=== PATIENT | female | born 1955 | race Caucasian/White ===

== ENCOUNTER 2022-04-27 07:30 | Inpatient (IN) | payer MEDICARE, MEDICAID, SELFPAY ==
[2022-04-27] VITALS (11 sets, daily range): BP systolic 93–115; BP diastolic 49–67; PULSE 70–90; RESP 16–24; TEMP 36.5–36.9; O2SAT 93–99; BMI 23.7
--- NOTE | 2022-04-27 | ECHO_ITS ---
Patient Info Name: Olivia Alegria Age: 66 years : 1955 Gender: Female Ht: 65 in Wt: 140 lbs BSA: 1.71 m2 HR: 83 bpm BP: 93 / 49 mmHg Heart Rhythm: Sinus Rhythm Technical Quality: Fair Exam Date: 04/27/2022 10:21 AM Exam Location: [facility] Card Pulmonary Patient Status: Inpatient Admit Date: 04/27/2022 Staff Ordering Physician: Emma Ma Manager Medicaid: Miya Jaeger RDCS Attending Provider: Emma Ma Referring Physician: Francesca HALL; Exam Type: CA echo doppler color flow Study Info Indications - chest pain, dyspnea Complete two-dimensional, color flow and Doppler transthoracic echocardiogram is performed. Summary 1. Complete two-dimensional, color flow and Doppler transthoracic echocardiogram is performed. 2. Normal left ventricular size and thickness with good contractility of all segments. Ejection fraction 63%. Grade 2 diastolic dysfunction is present. 3. Left atrial chamber dimension is mildly enlarged. 4. There is mild mitral valve regurgitation. 5. Mild pulmonary hypertension, estimated pulmonary arterial systolic pressure is 37 mmHg. 6. Probable sinus rhythm. Left Ventricle Left ventricular chamber dimension is normal. Left ventricular systolic function is normal, estimated at Empty. There is no increased left ventricular wall thickness. Left ventricular septal wall motion is normal. The left ventricular diastolic function is grade II diastolic dysfunction. Right Ventricle Right ventricular chamber dimension is normal. Right ventricular systolic function is normal. Left Atria Left atrial chamber dimension is mildly enlarged. Right Atria Right atrial chamber dimension is normal. Aortic Valve The aortic valve is trileaflet. There is no aortic valve sclerosis. There is no aortic valve stenosis. There is no aortic valve regurgitation. Pulmonic Valve The pulmonic valve is normal. There is no pulmonic valve stenosis. There is no pulmonic regurgitation. Mitral Valve The mitral valve has normal leaflets and thickened leaflets. There is no mitral valve stenosis. There is mild mitral valve regurgitation. Tricuspid Valve The tricuspid valve leaflets are normal. There is no significant tricuspid valve stenosis. There is trace tricuspid valve regurgitation. Mild pulmonary hypertension, estimated pulmonary arterial systolic pressure is 37 mmHg. Pericardium/Pleural The pericardium appears normal. There is no pericardial effusion. Inferior Vena Cava Normal inferior vena cava with >50% collapse upon inspiration consistent with Empty right atrial pressure, 10 mmHg. Aorta The aortic root size at the sinus of Valsalva is normal. The prox ascending aorta size is normal. Left Ventricular Outflow Tract Name Value Normal LVOT Doppler LVOT Peak Gradient 7 mmHg LVOT Mean Gradient 4 mmHg LVOT VTI 25 cm LVOT VTI/AV VTI Ratio 0.9 Pulmonic Valve Name Value Normal
--- NOTE | ~2022-04-27 | XR_ITS ---
EXAMINATION: XR chest 1V portable DATE: 04/27/2022 08:21 INDICATION: Chest pain. TECHNIQUE: A single frontal view of the chest was obtained. COMPARISON: None. FINDINGS: The patient is rotated to her right. Calcified right lung nodules are consistent with old g ranulomatous disease. There is no pneumonia, pleural effusion, or pneumothorax. The heart size is nor mal. There is a left subclavian port with tip in superior vena cava. IMPRESSION: 1. No acute cardiopulmonary disease. Reviewed, dictated and finalized at location A.
--- NOTE | ~2022-04-27 | CT_ITS ---
EXAMINATION: CT brain wo con DATE: 04/28/2022 11:13 INDICATION: Persistent headache. TECHNIQUE: Computed tomography (CT) of the head was performed without intravenous contrast. The mA wa s adjusted according to patient size. Iterative reconstruction technique was employed. The dose-lengt h product was 605.33 mGy-cm. COMPARISON: None FINDINGS: There is no intracranial hemorrhage, acute infarction, or abnormal intracranial mass lesion . The ventricles are normal in size. There is mucosal thickening in the paranasal sinuses. The orbits are normal. The mastoid air cells are normal. IMPRESSION: 1. Normal brain. Reviewed, dictated and finalized at location A. IMPRESSION: 1. Normal brain.
--- NOTE | ~2022-04-27 | US_ITS ---
US venous doppler [facility] DATE: 04/27/2022 10:50 INDICATION: Recent history of deep venous thrombosis. Elevated d-dimer. TECHNIQUE: Real-time and color flow imaging and Doppler analysis COMPARISON: None FINDINGS: The greater saphenous veins are patent. There is spontaneous and phasic flow and normal aug mentation and color flow signal and normal compression of the common femoral, femoral, popliteal, pos terior tibial and peroneal veins bilaterally. IMPRESSION: No evidence of deep venous thrombosis of the lower extremities Reviewed, dictated and finalized at Location A. Reviewed, dictated and finalized at location B.
--- NOTE | 2022-04-27 08:01 | ECG_ITS ---
Measurements Intervals [place] Rate: 77 P: 71 LA: 169 QRS: 36 QRSD: 79 T: 53 QT: 374 QTc: 425 Interpretive Statements SINUS RHYTHM NO PREVIOUS ECG AVAILABLE FOR COMPARISON Electronically Signed On 04-27-2022 16:30:39 CDT by Beverley Santana M.D.
--- NOTE | 2022-04-27 08:06 | PC.NURSE ---
This patient, Olivia Alegrai, was admitted to IMU Room 214-01. Patient/family oriented to hospital policies and general routines including ID bracelet, bed and alarms, visiting hours, pain management, procedures, bathroom and other care routines, personal items, smoking policy, room service/diet, and visiting hours. Information on how to activate the Rapid Response Team has been discussed. Patient/Family are encouraged to report perceived risks to care and to ask questions if they do not understand what they are told or what they should do.
--- NOTE | 2022-04-27 08:32 | PM.IMHP ---
H&P: HPI History of Present Illness Date/Time: 04/27/22 08:19 Chief Complaint: Chest pain and SOB Narrative: This 66-year-old female patient with significant past medical history of stage III colon cancer status post colon resection and ostomy placement, recent DVT diagnosed in July 2021 that was treated with Eliquis and has currently been off anticoagulation for 3 weeks, peptic ulcer disease, splenectomy who presents as a transfer patient from [facility] in [facility] on a heparin drip, with complaints of chest pain, dyspnea and elevated troponins and D-dimer after having chemotherapy yesterday. Patient endorses that this is the 3rd time that after her chemotherapy has completed that she has developed the symptoms of severe headache, chest pain, painful inspiration and shortness of breath. Yesterday she presented to the emergency room secondary to these complaints and workup there was significant for elevated troponin, elevated D-dimer subsequent negative CTA of the chest, elevated lactic acid at 3.5, and hypotension with patient's systolic blood pressure in the 70s and tachycardic with heart rate in the 120s, but remaining in sinus rhythm. Review of the records from outside facility indicate that they were very judicious and hydrating this patient and she only received a total of 750 mL of IV fluids and placed on maintenance rate of 70 mL/hour. Patient has no known history of heart failure but does see a compound specialist at [place] who has name starts with an M. In addition her oncologist is Dr. Varma in [place] and she cannot remember the name of her PCP in [place] at this time. She is a former smoker, does not drink alcohol and does not use any illicit drugs. At the time of my assessment patient endorses mild left-sided chest pain without radiation, intermittent nausea is present in currently has severe headache pain she endorses that it hurts when she breathes in, although chest x-ray performed here is negative and lung sounds are unremarkable. She denies any recent vomiting or diarrhea in no dizziness or lightheadedness reported with her headache. outbound call center representative Cardiology had accepted patient in consult and they will be by to see patient today. ECHO, Venous Dopplers, Repeat labs and possible repeat of imaging will be performed. She is currently NSR 77 bpm on telemetry. Review of Systems Review of Systems: All systems reviewed & are unremarkable except as noted in HPI and below PMFSH Past Medical History Medical History (Updated 04/27/22 @ 08:48 by CESAR Franklin) Colon cancer PUD (peptic ulcer disease) Surgical History Surgical History (Updated 04/27/22 @ 08:40 by CESAR Franklin) H/O splenectomy History of colon resection History of creation of ostomy Family History Family History (Updated 04/27/22 @ 08:07 by Kaylah Mims RN) Other Unknown family medical history Social History Social History (Updated 04/27/22 @ 08:40 by CESAR Franklin) Smoking status: Former smoker Tobacco type: cigarettes Alcohol intake: former Substance use: never Spiritual care concerns: No Meds Home Medications and Allergies Home Medications Medication Instructions Recorded Confirmed Type apixaban 5 mg tablet (Eliquis) 5 mg PO BID 04/27/22 04/27/22 History atorvastatin 40 mg tablet 40 mg PO DAILY 04/27/22 04/27/22 History hydrocodone 5 mg-acetaminophen 325 25 tablet PO PRN 04/27/22 04/27/22 History mg tablet meclizine 25 mg tablet 25 mg PO PRN 04/27/22 04/27/22 History ondansetron HCl 4 mg tablet 4 mg PO PRN 04/27/22 04/27/22 History ondansetron HCl 4 mg tablet mg 04/27/22 History prochlorperazine maleate 10 mg 10 mg PO PRN 04/27/22 04/27/22 History tablet Allergies Allergy/AdvReac Type Severity Reaction Status Date / Time No Known Allergies Allergy Verified 04/27/22 08:39 Exam Const: General: comfortable and no acute distre
[2022-04-27 08:35] LABS: Hematocrit 37.1 % (37.0-47.0); Hemoglobin 11.6 g/dL (12.0-15.0); Mean Corpuscular HGB Conc 31.3 g/dl (32-36); Mean Corpuscular Hemoglobin 29.7 pg (26-34); Mean Corpuscular Volume 95.1 fl (80-100); Mean Platelet Volume 11.4 fl (7.4-10.4); Platelet Count Result 199 k/mm3 (150-375); Red Cell Distribution Width 16.8 % (11.5-14.5)
[2022-04-27 08:44] LABS: INR 1.2; Prothrombin Time 14.6 Seconds (11.1-14.7)
[2022-04-27 08:46] LABS: Lactic Acid Reflex 1.5 mmol/L (0.7-2.0)
[2022-04-27 08:46] LABS: Partial Thromboplastin Time 64.8 SECONDS (22.3-36.8)
[2022-04-27 08:49] LABS: Alanine Aminotransferase 57 U/L (6-35); Albumin Level 3.8 g/dL (3.5-5.1); Alkaline Phosphatase 96 U/L (38-126); Anion Gap 9 mmol/L (8-16); Aspartate Amino Transferase 188 U/L (14-36); Bilirubin,Total 0.6 mg/dL (0.2-1.3); Blood Urea Nitrogen 21 mg/dL (7-17); CRP 6.6 mg/dL (<1.0); Carbon Dioxide 21 mmol/L (22-30); Chloride 104 mmol/L (98-107); Estimated CRCL calculation 49 ml/min; Estimated Glomerular Filt Rate > 60; Glucose 103 mg/dL (65-110); Magnesium 1.7 mg/dL (1.6-2.3); Potassium 4.8 mmol/L (3.4-5.0); Sodium 134 mmol/L (137-145)
[2022-04-27 08:56] LABS: Band Neutrophils Percent 21 % (0-6); Hypochromasia 1+ (NORMAL); Lymphocytes Absolute Manual 0.54 K/mm3 (1.1-4.5); Lymphocytes Percent Manual 3 % (18-44); Neutrophils Absolute Manual 16.38 K/mm3 (1.7-7.2); Neutrophils Percent Manual 70 % (46-73); Platelet Estimate Adequate (Adequate); Total Cells Counted 100
[2022-04-27 08:57] LABS: Monocytes Absolute Manual 1.08 K/mm3 (0.1-0.90); Monocytes Percent Manual 6 % (3-9)
[2022-04-27 09:00] LABS: Troponin I 0.253 ng/mL (0.000-0.034)
[2022-04-27 09:28] LABS: Procalcitonin 21.3 ng/mL
[2022-04-27] MEDS: SODIUM CHLORIDE 0.9% IV 1,000 ML 100 ML IV CONT ×2 (09:48→17:33)
[2022-04-27] MEDS: HEPARIN SOD/D5W 100 UNITS/ML 25,000 UNITS/250 ML BAG 6 UNITS IV CONT (09:49)
[2022-04-27] MEDS: HEPARIN SODIUM 5,000 UNITS/ML VIAL 2500 UNITS IV PUSH (09:50)
--- NOTE | 2022-04-27 10:50 | PM.CNCAR ---
Assessment and Plan Assessment and plan (1) Chest pain: Code(s): R07.9 - Chest pain, unspecified Status: Acute Assessment and Plan: Patient admitted with chest pain and elevated troponins. EKG shows no acute changes History of Takotsubo cardiomyopathy in December 2021; troponins are not as high as they were at that time. Minimal CAD by catheterization in December 2021, with 80% diagonal stenosis. Echo pending Add aspirin. Recheck LFTs tmr and if improved resume atorvastatin Likely discontinue heparin depending on echo results. (2) Elevated troponin: Code(s): R77.8 - Other specified abnormalities of plasma proteins Status: Acute Assessment and Plan: As above (3) Hypotension: Code(s): I95.9 - Hypotension, unspecified Status: Acute Assessment and Plan: Admitted after chemo with hypotension. Elevated lactic acid and white cell count with a left shift Being treated for possible sepsis (4) Dyspnea: Code(s): R06.00 - Dyspnea, unspecified Status: Acute Assessment and Plan: Chronic CERDA, worse yesterday. No PE by CT scan No pneumonia by CT scan Mildly elevated proBNP but no evidence of acute CHF. History of Present Illness History of Present Illness Consult date/time: 04/27/22 10:50 Reason For Visit: Elevated troponin/Hypotension/Lactic Acidosis Narrative: Olivia Alegria is a 66 y.o. female whom I was asked to see at the request of Emma Ma APN, for my advice and opinion regarding chest pain and elevated troponins after chemotherapy. She has stage III colon cancer dx'd 08/2021 and she had a colectomy and splenectomy; hospital course complicated by a DVT and MRSA. Followed by Dr. Varma in [place], [place]. Anticoagulation was discontinued a few weeks ago. The patient was admitted to [facility] in [place] a few hours after her chemo tx yesterday. She complained of a pounding headache, with chest pain, dyspnea and weakness. Apparently this is the 3rd time she was admitted after chemotherapy. Her chest pain was in the epigastric area and left chest, also the right scapular area, somewhat pleuritic, lasting 3 or 4 hours. She had hypotension with systolic blood pressure in the 70s-90's, sinus tachycardia with heart rate in the 120s. She had e high sensitivity troponin I of 671, then 525. Her lactic acid was 3.5 lipase was 580. ProBNP was 1900. Elevated D-dimer. At the [place] emergency room she had elevated troponins, and elevated D-dimer of [address] of the chest, a lactic acid level 3.5. Lower extremity venous ultrasound was negative. Chest x-ray showed borderline cardiomegaly with no CHF. Aortic atherosclerosis. EKG was read as: Sinus tachycardia rate 123 but no acute ischemic changes. Patient was given some IV fluids and has been started on antibiotics here because of bandemia, hypotension and lactic acidosis. Troponin I here is 0.25 and 0.20. Spoke to the patient's usual brazer crawler torch, Dr. Arnold Mcmahon ([phone], [facility], [facility] in [place], [place]). Patient was hospitalized in December with elevated troponins, high sensitivity troponin I up to 4300. Cardiac catheterization showed an 80% diagonal lesion but the patient was thought to have Tako Tsubo cardiomyopathy possibly related to her chemotherapy and no PCI was done. She was also hospitalized in February for noncardiac issues and had negative troponins. Review of Systems Constitutional: Constitutional: Reports body ache(s), Reports fatigue and Reports weakness Eyes: Eyes: Reports no additional eye complaints ENT: Denies epistaxis Cardiovascular: Cardiovascular: Reports chest pain, Denies pedal edema, Denies leg edema, Reports lightheadedness and Reports palpitations Respiratory: Respiratory: Reports dyspnea and Reports dyspnea on exertion Comments: Patient has some chronic shortness of breath and CERDA, no history of COPD. Gastrointesti
[2022-04-27] MEDS: ACETAMINOPHEN 500 MG TABLET 1000 MG PO ×2 (11:01→21:45)
[2022-04-27 11:33] LABS: Appearance Urine Clear (Clear); Bilirubin Urine Negative (Negative); Blood Urine 2+ (Negative); Color Urine Yellow (Yellow); Glucose Urine UA Negative (Negative); Ketones Urine Negative (Negative); Leukocyte Esterase Ur Trace LEU/UL (Negative); Nitrate Urine Negative (Negative); Protein Urine Negative (Negative); Urobilinogen Urine 0.2 mg/dL (<2.0)
[2022-04-27 11:38] LABS: Troponin I 0.204 ng/mL (0.000-0.034)
[2022-04-27 11:42] LABS: Add Urine Microscopic? YES; Mucus Urine Rare /lpf; RBC Urine 0-2 /hpf (0-2); Squamous Epithelial Cell Urine Rare /hpf (Few)
[2022-04-27] MEDS: ASPIRIN 81 MG CHEWABLE TABLET PO (14:20)
[2022-04-27 17:00] LABS: Partial Thromboplastin Time 108.2 SECONDS (22.3-36.8)
[2022-04-27 17:04] LABS: Troponin I 0.184 ng/mL (0.000-0.034)
[2022-04-27] MEDS: ONDANSETRON INJ 4 MG/2 ML VIAL IV PUSH (21:56)
[2022-04-27 23:59] LABS: Partial Thromboplastin Time 94.1 SECONDS (22.3-36.8)
[2022-04-28] VITALS (9 sets, daily range): BP systolic 112–122; BP diastolic 57–62; PULSE 77–95; RESP 16–24; TEMP 36.4–37; O2SAT 92–95
[2022-04-28] MEDS: ACETAMINOPHEN 500 MG TABLET 1000 MG PO (03:53)
[2022-04-28] MEDS: SODIUM CHLORIDE 0.9% IV 1,000 ML 100 ML IV CONT (03:55)
[2022-04-28 05:34] LABS: Hemoglobin 10.9 g/dL (12.0-15.0); Mean Corpuscular HGB Conc 31.1 g/dl (32-36); Mean Corpuscular Hemoglobin 29.5 pg (26-34); Mean Corpuscular Volume 94.9 fl (80-100); Mean Platelet Volume 11.7 fl (7.4-10.4); Platelet Count Result 156 k/mm3 (150-375); Red Blood Count 3.69 M/mm3 (4.2-5.4); Red Cell Distribution Width 17.2 % (11.5-14.5); White Blood Count 14.7 K/mm3 (4.5-10.0)
[2022-04-28 05:45] LABS: Alanine Aminotransferase 33 U/L (6-35); Alkaline Phosphatase 90 U/L (38-126); Anion Gap 6 mmol/L (8-16); Aspartate Amino Transferase 79 U/L (14-36); Bilirubin,Total 0.4 mg/dL (0.2-1.3); Blood Urea Nitrogen 13 mg/dL (7-17); Calcium 8.6 mg/dL (8.4-10.2); Carbon Dioxide 21 mmol/L (22-30); Chloride 109 mmol/L (98-107); Estimated CRCL calculation 61 ml/min; Estimated Glomerular Filt Rate > 60; Glucose 92 mg/dL (65-110); Magnesium 1.7 mg/dL (1.6-2.3); Potassium 4.3 mmol/L (3.4-5.0); Sodium 136 mmol/L (137-145)
[2022-04-28 05:46] LABS: Partial Thromboplastin Time 88.7 SECONDS (22.3-36.8)
[2022-04-28] MEDS: HEPARIN SOD/D5W 100 UNITS/ML 25,000 UNITS/250 ML BAG 6 UNITS IV CONT (05:58)
[2022-04-28 06:45] LABS: Anisocytosis 1+ (NORMAL); Band Neutrophils Percent 1 % (0-6); Eosinophils Absolute Manual 0.14 K/mm3 (0.02-0.5); Eosinophils Percent Manual 1 % (0-4); Lymphocytes Absolute Manual 0.88 K/mm3 (1.1-4.5); Monocytes Absolute Manual 0.29 K/mm3 (0.1-0.90); Monocytes Percent Manual 2 % (3-9); Neutrophils Absolute Manual 13.37 K/mm3 (1.7-7.2); Neutrophils Percent Manual 90 % (46-73); Ovalocytes 1+ (NORMAL); Platelet Estimate Adequate (Adequate); Total Cells Counted 100
[2022-04-28] MEDS: ASPIRIN 81 MG CHEWABLE TABLET PO (07:38)
[2022-04-28] MEDS: ONDANSETRON INJ 4 MG/2 ML VIAL IV PUSH (08:27)
--- NOTE | 2022-04-28 10:34 | PM.IMPN ---
Progress Note: A&P Assessment and Plan (1) Chest pain: Code(s): R07.9 - Chest pain, unspecified Status: Acute Assessment and Plan: -in setting chemotherapy infusion. Patient endorses that she had the same reaction after the past 2 sessions of chemotherapy as well. -CTA PE protocol negative from outside facility. Monitor PTT, serial troponins, Serum electrolytes, and cbc Keep serum potassium >4 and keep magnesium >2 Cardiology consulted, appreciate assistance and recommendations Heparin drip per ACS protocol was discontinued as the patient has a relatively stable troponin, denies any chest pain, EKG negative, and echocardiogram was reviewed Monitor for bloody bowel movements,chest pain,SOB or dizziness/lightheadedness resume atorvastatin 40 mg daily, added aspirin 81 mg daily (2) Dyspnea: Code(s): R06.00 - Dyspnea, unspecified Status: Acute Assessment and Plan: -in setting of elevated D-dimer with recent history DVT and discontinuation of anticoagulation 3 weeks ago. negative CTA from outlying facility -monitor labs and vitals -chest x-ray performed here on arrival negative for any acute findings. patient reports a similar reaction after having her last chemo therapy treatment. Patient also states that the increased respirations may be due to her headache that has been persistent upon arrival. (3) Elevated troponin: Code(s): R77.8 - Other specified abnormalities of plasma proteins Status: Acute Assessment and Plan: Patient's troponin appears relatively from outpatient records. in December of 2021 the patient had a high sensitivity troponin I of 671 and 525. Shes had higher readings up to 4300. (4) Elevated d-dimer: Code(s): R79.89 - Other specified abnormal findings of blood chemistry Status: Acute Assessment and Plan: -CTA at outside facility was negative for any PE. -chest x-ray performed here was negative for any acute disease. -venous Dopplers ordered. -patient recently had lower extremity DVT and was on Eliquis 5 mg p.o. b.i.d., however that was discontinued 3 weeks ago. -echo was ordered (5) Hypotension: Code(s): I95.9 - Hypotension, unspecified Status: Acute Assessment and Plan: -monitor labs and vitals -IV fluid bolus as needed -IV maintenance fluids of normal saline at 100 an hour. (6) Elevated lactic acid level: Code(s): R79.89 - Other specified abnormal findings of blood chemistry Status: Acute Assessment and Plan: -repeat lactic acid. Suspect dehydration versus infection, however more suspicious of dehydration given no source of infection is appreciated and patient did appear minimally dehydrated on labs from outside facility with elevated renal function about her baseline. -continue hydration -monitor labs and vitals. -- Continue to review and look at other considerations. Subjective Date/time seen: 04/28/22 10:34 patient is alert and oriented. Discussed why she came to the hospital this morning. Patient reported that she came to the hospital because of the headache is still yet to be treated. CT of the head has not been performed. Will order this. Patient recently discontinued her Eliquis after having a DVT to her lower extremity. Her troponins appear to be stable. Echocardiogram was reviewed, will discontinue heparin drip. Cardiology Following. Patient denies any chest pain, abdominal pain, nausea, vomiting or diarrhea. She does endorse mild shortness of breath and relates this to a headache to the right eye -suggestive of a cluster migraine vs other concerning dx. May consider MRI of the brain w/wo contrast. Review of Systems Review of Systems: All systems reviewed & are unremarkable except as noted in HPI and below Exam Narrative: General: No acute distress. anxious Mental Status: Awake, alert and oriented to person, place, and time with clear speech. Skin: Skin in wa
[2022-04-28] MEDS: ACETAMINOPHEN/BUTALBITAL/CAFFEINE 325-50-40 MG TABLET (FIORICET) 1 TAB PO (11:03)
--- NOTE | 2022-04-28 11:14 | PM.PNCARD ---
Progress Note: A&P Assessment and Plan (1) Chest pain: Code(s): R07.9 - Chest pain, unspecified Status: Acute Assessment and Plan: Patient admitted with chest pain and elevated troponins. EKG shows no acute changes History of Takotsubo cardiomyopathy in December 2021; troponins are not as high as they were at that time. Minimal CAD by catheterization in December 2021, with 80% diagonal stenosis. Echo this admission shows normal LV function, no wall motion abnormalities. Chest pain and elevated troponins are likely a nonspecific reaction to hypotension and tachycardia. Continue aspirin, resume atorvastatin. (2) Elevated troponin: Code(s): R77.8 - Other specified abnormalities of plasma proteins Status: Acute Assessment and Plan: As above (3) Hypotension: Code(s): I95.9 - Hypotension, unspecified Status: Acute Assessment and Plan: Admitted after chemo with hypotension. Elevated lactic acid and white cell count with a left shift Initially thought to be septic, but cultures are negative. Probably dehydrated. Patient has responded to IV fluids. (4) Dyspnea: Code(s): R06.00 - Dyspnea, unspecified Status: Acute Assessment and Plan: Chronic CERDA, worse on admission, no definite etiology. No PE by CT scan No pneumonia by CT scan Mildly elevated proBNP but no evidence of acute CHF Patient thinks the shortness of breath is related to her severe headache Subjective Date/time seen: 04/28/22 11:14 Interval history: Follow-up for elevated troponins, chest pain, history of Takotsubo cardiomyopathy December 2021. Catheterization showed 80% diagonal stenosis, treated medically. Followed by boom worker Dr. Arnold Mcmahon ([phone], [facility]). Patient developed chest pain, shortness of breath, weakness and headache after her chemotherapy on 04/27/2022 in was admitted with hypotension and tachycardia. ?She had a high sensitivity troponin I of? 671, then 525.? Her lactic acid was 3.5, lipase was 580.? ProBNP was 1900.? Improved with IV fluids and antibiotics. Cultures negative, thought to be dehydrated. Date of service 04/28/2022: Patient complains of a pounding headache, some dizziness, mild dry cough. No more chest pain. Blood pressure has improved with IV fluids. No longer has sinus tachycardia. Remains on room air. Heparin was discontinued. Remains on IV fluids 50 cc/hour. Echo Yesterday showed normal left ventricular function. Head CT: Normal. Review of Systems Constitutional: Constitutional: Reports difficulty sleeping, Reports fatigue and Denies fever(s) Cardiovascular: Cardiovascular: Denies chest pain, Denies pedal edema, Reports lightheadedness and Denies dyspnea Respiratory: Respiratory: Denies chest congestion and Denies dyspnea Gastrointestinal: Gastrointestinal: Denies abdominal pain, Denies hematochezia and Reports nausea Musculoskeletal: Musculoskeletal: Reports no additional musculoskeletal complaints Integumentary/Breasts: Skin/Breast: Reports system reviewed and no additional complaints, except as docu Neurologic: Reports system reviewed and no additional complaints, except as documented, Denies behavioral changes, Denies confusion and Reports headache(s) Psychiatric: Psychiatric: Denies behavioral changes and Denies confusion Exam Const: General: cooperative, healthy appearing and uncomfortable; No confusion Orientation/consciousness: oriented to person, patient oriented x3 and No confusion Resp: Effort & Inspection: normal respiratory effort Auscultation: clear to auscultation bilaterally Cardio: Rate: regular rate Rhythm: regular rhythm Heart sounds: no murmurs GI: Inspection: normal to inspection GI Palp: No abdominal tenderness Neuro: General: oriented to person, patient oriented x3 and No confusion Extrem: Right lower extremity:
[2022-04-28] MEDS: traMADol HCL (*CRX) 25 MG TABLET PO ×2 (15:50→20:15)
[2022-04-28] MEDS: SODIUM CHLORIDE 0.9% IV 1,000 ML 50 ML IV CONT (15:51)
--- NOTE | 2022-04-28 20:30 | PC.NURSE ---
This patient, Olivia Alegria, was transferred to [[id number]] on 04/28/22 at 2030. Personal belongings sent with patient. Report given to [Natalia diaz ]. Appropriate documentation sent with patient.
--- NOTE | 2022-04-28 21:04 | PC.NURSE ---
2050 RECEIVED TRANSFER PT IN BED FROM IMU.
[2022-04-29] VITALS (8 sets, daily range): BP systolic 112–123; BP diastolic 59–67; PULSE 66–105; RESP 14–16; TEMP 36.5–36.6; O2SAT 93–98
[2022-04-29] MEDS: traMADol HCL (*CRX) 25 MG TABLET PO ×2 (00:09→04:12)
[2022-04-29 05:47] LABS: Estimated CRCL calculation 61 ml/min; Estimated Glomerular Filt Rate > 60
[2022-04-29 05:52] LABS: Partial Thromboplastin Time 56.8 SECONDS (22.3-36.8)
--- NOTE | 2022-04-29 06:34 | PM.DS ---
DS: Admitting Diagnosis Discharge Date 04/29/2022 Admitting Diagnosis chest pain Headache DS: Discharge Diagnosis Discharge Diagnosis (1) Chest pain: Code(s): R07.9 - Chest pain, unspecified Status: Acute Assessment and Plan: -in setting chemotherapy infusion. Patient endorses that she had the same reaction after the past 2 sessions of chemotherapy as well. -CTA PE protocol negative from outside facility. Monitor PTT, serial troponins, Serum electrolytes, and cbc Keep serum potassium >4 and keep magnesium >2 Cardiology consulted, appreciate assistance and recommendations Heparin drip per [facility] protocol was discontinued as the patient has a relatively stable troponin, denies any chest pain, EKG negative, and echocardiogram was reviewed Monitor for bloody bowel movements,chest pain,SOB or dizziness/lightheadedness resume atorvastatin 40 mg daily, added aspirin 81 mg daily (2) Dyspnea: Code(s): R06.00 - Dyspnea, unspecified Status: Acute Assessment and Plan: -in setting of elevated D-dimer with recent history DVT and discontinuation of anticoagulation 3 weeks ago. negative CTA from outlying facility -monitor labs and vitals -chest x-ray performed here on arrival negative for any acute findings. patient reports a similar reaction after having her last chemo therapy treatment. Patient also states that the increased respirations may be due to her headache that has been persistent upon arrival. (3) Elevated troponin: Code(s): R77.8 - Other specified abnormalities of plasma proteins Status: Acute Assessment and Plan: Patient's troponin appears relatively from outpatient records. in December of 2021 the patient had a high sensitivity troponin I of 671 and 525. Shes had higher readings up to 4300. (4) Elevated d-dimer: Code(s): R79.89 - Other specified abnormal findings of blood chemistry Status: Acute Assessment and Plan: -CTA at outside facility was negative for any PE. -chest x-ray performed here was negative for any acute disease. -venous Dopplers ordered. -patient recently had lower extremity DVT and was on Eliquis 5 mg p.o. b.i.d., however that was discontinued 3 weeks ago. -echo was ordered (5) Hypotension: Code(s): I95.9 - Hypotension, unspecified Status: Acute Assessment and Plan: -monitor labs and vitals -IV fluid bolus as needed -IV maintenance fluids of normal saline at 100 an hour. (6) Elevated lactic acid level: Code(s): R79.89 - Other specified abnormal findings of blood chemistry Status: Acute Assessment and Plan: -repeat lactic acid. Suspect dehydration versus infection, however more suspicious of dehydration given no source of infection is appreciated and patient did appear minimally dehydrated on labs from outside facility with elevated renal function about her baseline. -continue hydration -monitor labs and vitals. -- Continue to review and look at other considerations. DS: Summary Hospital Course Reason for hospitalization: Chest pain Headache Hospital Course: patient is a 66-year-old female with a past medical history of stage III colon cancer status post colon resection and ostomy placement, recent DVT diagnosis in July 2021 recently stopped taking Eliquis approximately 3 weeks ago, peptic ulcer disease, splenectomy who was transferred from [facility] in [facility] on heparin drip with complaints of chest pain, dyspnea and elevated troponins as well as a D-dimer after chemotherapy the day prior to admission. Patient endorses that this is the 3rd time that she has done is after taking her chemo med. he patient reports that after each chemotherapy treatment she developed symptoms of a severe headache, chest pain, painful inspiration and shortness of breath. When she presented to the emergency department with secondary complaints and workup was significant for an elevat
[2022-04-29] MEDS: ONDANSETRON INJ 4 MG/2 ML VIAL IV PUSH (07:24)
[2022-04-29] MEDS: ATORVASTATIN 40 MG TABLET PO (08:30)
[2022-04-29] MEDS: ASPIRIN 81 MG CHEWABLE TABLET PO (08:30)
[2022-04-29 09:18] LABS: Glucose Point of Care 90 mg/dl (65-105)
[2022-04-29 09:35] LABS: Alanine Aminotransferase 24 U/L (6-35); Albumin Level 2.9 g/dL (3.5-5.1); Alkaline Phosphatase 76 U/L (38-126); Anion Gap 8 mmol/L (8-16); Aspartate Amino Transferase 51 U/L (14-36); Bilirubin,Total 0.4 mg/dL (0.2-1.3); Blood Urea Nitrogen 7 mg/dL (7-17); Calcium 8.6 mg/dL (8.4-10.2); Carbon Dioxide 23 mmol/L (22-30); Chloride 102 mmol/L (98-107); Estimated CRCL calculation 61 ml/min; Estimated Glomerular Filt Rate > 60; Glucose 103 mg/dL (65-110); Sodium 133 mmol/L (137-145)
[2022-04-29 09:48] LABS: Basophils Percent Auto 0.4 % (0.2-1.2); Eosinophils Absolute Auto 0.1 K/mm3 (0-0.3); Eosinophils Percent Auto 1.3 % (0-4.4); Hematocrit 34.6 % (37.0-47.0); Hemoglobin 11.1 g/dL (12.0-15.0); Immature Granulocyte Absolute 0.04 K/mm3 (0.00-0.031); Immature Granulocyte Percent A 0.4 % (0-0.5); Lymphocytes Absolute Auto 2.12 K/mm3 (0.9-3.2); Lymphocytes Percent Auto 23.3 % (18.3-44.2); Mean Corpuscular HGB Conc 32.1 g/dl (32-36); Mean Corpuscular Hemoglobin 30.1 pg (26-34); Mean Corpuscular Volume 93.8 fl (80-100); Mean Platelet Volume 11.9 fl (7.4-10.4); Monocytes Absolute Auto 1.7 K/mm3 (0.1-0.6); Monocytes Percent Auto 18.1 % (2.6-8.5); Neutrophils Absolute Auto 5.1 K/mm3 (1.3-6.7); Neutrophils Percent Auto 56.5 % (45.5-73.1); Nucleated Red Blood Cells Perc 0.3 % (0.0-0.2); Platelet Count Result 154 k/mm3 (150-375); Red Blood Count 3.69 M/mm3 (4.2-5.4); Red Cell Distribution Width 16.6 % (11.5-14.5); White Blood Count 9.1 K/mm3 (4.5-10.0)
[2022-04-29] MEDS: ACETAMINOPHEN/BUTALBITAL/CAFFEINE 325-50-40 MG TABLET (FIORICET) 1 TAB PO (10:57)
[2022-04-29] MEDS: CENTRAL LINE FLUSH 10 ML IV PUSH (14:08)
[2022-04-29] MEDS: HEPARIN SODIUM LOCK FLUSH 500 UNITS/5 ML SYRINGE IV PUSH (16:16)
== END 2022-04-29 17:17 | disposition home or self-care (01) | DRG 313 ==
LOC: ANHIMU 04-28 09:42 → ANH2MED 04-29 06:37 → ANHIMU 04-30 15:47
PROVIDERS: Internal Medicine; Nurse Practitioner Adult Health; Admitting Provider Family Medicine; Visit Provider Nurse Practitioner Family
DX: R07.9 Chest pain, unspecified (principal); C18.9 Malignant neoplasm of colon, unspecified; I95.9 Hypotension, unspecified; R06.00 Dyspnea, unspecified; R51.9 Headache, unspecified; R79.89 Other specified abnormal findings of blood chemistry; R77.8 Other specified abnormalities of plasma proteins; T45.1X5A Adverse effect of antineoplastic and immunosuppressive drugs, initial encounter; Z90.81 Acquired absence of spleen; Z93.3 Colostomy status; Z90.49 Acquired absence of other specified parts of digestive tract; Z86.718 Personal history of other venous thrombosis and embolism; Z87.11 Personal history of peptic ulcer disease
CPT/HCPCS: 36415; 70450; 71045; 80053; 81001; 82565; 82948; 83605; 83735; 84145; 84484; 85025; 85610; 85730; 86140; 87040; 93005; 93306; 93970; 97161; 97165; A9270; J0692; J1644; J2405; J3370; J7030